=== PATIENT | male | born 1985 | race African-American/Black ===

== ENCOUNTER 2019-06-02 15:41 | Emergency (ER) | payer OTHER ==
[2019-06-02 15:46] VITALS: BP 138/78; PULSE 76; TEMP 98.1; BMI 22.1
[2019-06-02] MEDS ORDERED: ALBUTEROL SO4 2.5/IPRATROPIUM 0.5 INH SOL 3 ML VIAL.NEB. NEB ONE ×2 (16:13→16:16)
--- NOTE | 2019-06-02 16:13 | PDOC ---
History of Present Illness - General Chief Complaint: Asthma Stated Complaint: ASTHMA Time Seen by Provider: 06/02/19 15:56 - History of Present Illness Initial Comments: 06/02/19 16:17 33 years old past medical history significant for mild asthma usually has 1-2 visits to in ED each year when his home albuterol does not work usual triggers include URIs presents to the ED today with 2-day history of URI type symptoms congestion cough and now asthma exacerbation not relieved by his home albuterol. No fever no chills no chest pain no travel no orthopnea no dyspnea on exertion well-appearing no apparent distress Past History - Past Medical History Allergies/Adverse Reactions: Allergies Allergy/AdvReac Type Severity Reaction Status Date / Time No Known Allergies Allergy Verified 06/02/19 15:43 Home Medications: Ambulatory Orders Albuterol 0.083% Nebulizer Anna [Ventolin 0.083% Nebulizer Soln -] 1 neb NEB Q4H #30 vial 03/29/12 Albuterol Sulfate Inhaler - [Ventolin HFA Inhaler -] 2 inh IH Q4H #1 inhaler 05/10 Azithromycin [Zithromax Z-MICHELLE (5 DAYS) -] 250 mg PO ASDIR #6 tablet 03/29/12 No Home Medications 0 dose .ROUTE UTDICT 03/29/12 predniSONE [Deltasone -] 40 mg PO DAILY #10 tablet 03/29/12 Albuterol Sulfate Inhaler - [Ventolin Hfa Inhaler -] 1 - 2 inh PO Q4H #1 inhaler 06/02/19 predniSONE [Deltasone -] 40 mg PO DAILY #4 tablet 06/02/19 Asthma: Yes COPD: No - Immunization History Td Vaccination: Yes TDAP Vaccination: Yes Immunization Up to Date: No - Psycho Social/Smoking Cessation Hx Smoking Status: Yes Smoking History: Current every day smoker Number of Cigarettes Smoked Daily: 10 Information on smoking cessation initiated: Yes Hx Alcohol Use: Yes (occasionally) Drug/Substance Use Hx: No Substance Use Type: None Review of Systems - Review of Systems Comments:: 06/02/19 16:18 ROS: A complete review of 10 out of 10 review of systems is taken and is negative apart from what is previously mentioned below and in the HPI. *Physical Exam - Vital Signs Last Vital Signs Temp Pulse Resp BP Pulse Ox 98.1 F 76 20 138/78 100 06/02/19 15:42 06/02/19 15:42 06/02/19 15:42 06/02/19 15:42 06/02/19 15:42 - Physical Exam 06/02/19 16:18 Vitals: Triage Vital signs reviewed General Appearance: No acute distress, well nourished well developed, Head: Atraumatic, Nose: Nares patent bilaterally; + nasal congestion Throat: Posterior oropharynx without erythema, mucous membranes moist, Neck: Supple; no Nucal rigidity Chest Wall: Nontender Cardiac: Regular rate and rhythym, no murmurs, no rubs, no gallops, Lungs: End expiratory wheeze bilaterally Extremities: Full range of motion to all extremities, no cyanosis, clubbing, or edema Skin: Warm and dry, no rashes or lesions, no rash, no petechiaePsych: Normal mood, normal affect Medical Decision Making - Medical Decision Making 06/02/19 16:20 Well-appearing no apparent distress mild end expiratory wheeze history examination consistent with asthma exacerbation secondary to URI Given failure of home albuterol will place patient on short course of prednisone and refill Ventolin MDI Findings, the need for follow-up and strict return instructions discussed with patient. Discharge - Discharge Information Problems reviewed: Yes Clinical Impression/Diagnosis: Asthma Qualifiers: Asthma severity: mild Asthma persistence: intermittent Asthma complication type : uncomplicated Qualified Code(s): J45.20 - Mild intermittent asthma, uncomplicated Condition: Stable Disposition: HOME - Admission No - Follow up/Referral Referrals: [facility] [place] [Provider Group] - Patient Discharge Instructions Patient Printed Discharge Instructions: Asthma -- Adult - Post Discharge Activity Work/Back to School Note: Back to Work
[2019-06-02] MEDS ORDERED: predniSONE 20 MG TABLET (UD) ONE (16:16)
[2019-06-02] MEDS ORDERED: predniSONE 10 MG TABLET (UD) ONE (16:16)
[2019-06-02] MEDS ORDERED: predniSONE 20 MG TABLET (UD) PO ONE ×2 (16:30)
== END 2019-06-02 16:56 | disposition home or self-care (01) ==
LOC: FER 15:41
PROC: 3E0F7GC Introduction of Other Therapeutic Substance into Respiratory Tract, Via Natural or Artificial Opening (ICD-10-PCS; principal; 2019-06-02)
DX: J45.20 Mild intermittent asthma, uncomplicated (principal)
CPT/HCPCS: 94640; 99281-25